=== PATIENT | female | born 1945 | race Caucasian/White ===

== ENCOUNTER → 2018-05-12 | Outpatient (CLI) | payer MEDICARE, BC ==
--- NOTE | 2018-05-12 10:18 | Diagnostic Imaging Report ---
TECHNIQUE: Magnetic resonance imaging of the left foot was performed WITHOUT injected contrast. HISTORY: nondisplaced fracture. COMPARISON: None available. DISCUSSION: Stress/insufficiency fracture of the third metatarsal base. 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 Hallux valgus with soft tissue bunion and first MTP degenerative arthrosis. Soft tissue swelling and edema of the foot. IMPRESSION: Stress/insufficiency fracture of the third metatarsal base. Signed by: Dr. Jorge Oh M.D. on 05/12/2018 10:14 AM
== END ==
LOC: MRI 08:23
PROVIDERS: ATTEND Podiatrist Foot & Ankle Surgery
DX: S92.215A Nondisplaced fracture of cuboid bone of left foot, initial encounter for closed fracture (principal)

== ENCOUNTER → 2018-09-16 | Outpatient (CLI) | payer MEDICARE, BC ==
--- NOTE | 2018-09-17 09:37 | Diagnostic Imaging Report ---
CT scan of the LEFT Foot, WITHOUT contrast. TECHNIQUE: Standard departmental protocols were used. Sagittal and coronal reformatted images were obtained. PROTOCOL: Routine COMPLICATIONS: None RADIATION DOSE: Total DLP = 93/6 mGy*cm Dose modulation, iterative reconstruction, and/or weight based adjustment of the mA/kV was utilized to reduce the radiation dose to as low as reasonably achievable. HISTORY: History of left foot fracture. COMPARISON: MRI left foot 05/12/2018. FINDINGS: Bones: No evidence of displaced fracture. There are mild sclerotic changes of the third metatarsal base, better characterized on prior MRI as stress/insufficiency fracture. Joints: No dislocation. Scattered moderate degenerative changes in the interphalangeal joints and midfoot. There is hallux valgus with moderate first MTP degenerative changes. Soft tissues: There is diffuse subcutaneous edema within the foot. IMPRESSION: No evidence of acute, displaced fracture. There are mild sclerotic changes of the third metatarsal base, better characterized on prior MRI as stress/insufficiency fracture. Diffuse subcutaneous edema within the foot. Signed by: Dr. Sergey Carrington MD on 09/17/2018 9:34 AM
== END ==
LOC: CT 16:39
PROVIDERS: ATTEND Podiatrist Foot & Ankle Surgery
DX: M79.672 Pain in left foot (principal); M79.671 Pain in right foot

== ENCOUNTER → 2019-06-19 | Day surgery (SDC) | payer MEDICARE, BC ==
[2019-06-12 15:51] LABS: BASOPHILS # (AUTO) 0.1 (0.0-0.1); BASOPHILS % 1.5 % (0.0-1.0); EOSINOPHILS # (AUTO) 0.3 (0.0-0.4); EOSINOPHILS % 4.2 % (0.0-6.0); HEMATOCRIT 40.5 % (34.2-44.1); HEMOGLOBIN 12.9 g/dL (12.0-16.0); LYMPHOCYTES # (AUTO) 2.5 (1.0-3.2); LYMPHOCYTES % 36.7 % (18.0-39.1); MEAN CORPUSCULAR HEMOGLOBIN 30.3 pg (28-32); MEAN CORPUSCULAR HGB CONC 31.9 g/dL (31-35); MEAN CORPUSCULAR VOLUME 95.1 fL (81-99); MONOCYTES # (AUTO) 0.6 (0.2-0.8); MONOCYTES % 8.3 % (4.4-11.3); NEUTROPHILS # (AUTO) 3.3 (2.1-6.9); NEUTROPHILS % 49.2 % (38.7-80.0); PLATELET COUNT 307 x10e3/uL (140-360); RED BLOOD COUNT 4.26 x10e6/uL (3.6-5.1); RED CELL DISTRIBUTION WIDTH 12.8 % (11.7-14.4)
--- NOTE | 2019-06-12 15:57 | Diagnostic Imaging Report ---
Chest, PA and lateral. History: Preoperative evaluation for foot surgery. Comparison: None available. Discussion: The cardiomediastinal silhouette and pulmonary vasculature are within normal limits. The lungs are clear without evidence of consolidation or effusion. There are no acute osseous abnormalities. IMPRESSION: No radiographic evidence of acute cardiopulmonary abnormality. Signed by: Osmar Watt MD on 06/12/2019 3:54 PM
[~2019-06-19] MED LIST: ACETAMINOPHEN 1000 MG/100 ML 100 ML IV ONE; BACITRACIN 50,000 UNIT VIAL ONE; BUPIVACAINE HCL 0.5% INJ 30 ML VIAL INJ ONE; CEFAZOLIN SOD 1 GM/NS 50ML 50 ML IV ONE; DEXAMETHASONE SOD PHOS INJ 4 MG/ML VIAL ONE; EPHEDRINE SULFATE INJ 50 MG/ML VIAL ONE; FENTANYL CITRATE/PF 100MCG/2 ML INJ ONE; GABAPENTIN100 MG PO; HYDROCODONE/APAP 5MG-325MG TAB ONE; LIDOCAINE HCL 2% LOCAL INJ 5 ML SDV VIAL INJ ONE; NAPROXEN250 MG PO; ONDANSETRON HCL INJ 2MG/ML 2ML 2 MG/ML VIAL ONE; PROPOFOL IV EMULSION 10 MG/ML 20 ML VIAL ONE; SEVOFLURANE INHAL SOLN 250 ML PEN BTL ONE
[2019-06-19 08:15] VITALS: BP 115/67
--- NOTE | 2019-06-19 14:06 | Operative Report ---
DATE OF PROCEDURE: 06/19/2019 SURGEON: Kimberly Dior DPM Dictating an operative report for Dr. Ortega. PREOPERATIVE DIAGNOSES: 1. Left 2nd metatarsal fracture. 2. Left 3rd metatarsal fracture. POSTOPERATIVE DIAGNOSES: 1. Left 2nd metatarsal fracture. 2. Left 3rd metatarsal fracture. PLANNED PROCEDURE: 1. Left 2nd metatarsal open reduction and internal fixation. 2. Left 3rd metatarsal open reduction and internal fixation. SURGEON: Funmilayo Ortega DPM ([place]). SHEET ROCK TAPER: Kimberly Dior DPM. ANESTHESIA: General with a postoperative block consisting of 20 mL of 0.5% Marcaine plain. HEMOSTASIS: Pneumatic thigh tourniquet set at 350 mmHg for a total time of approximately 40 minutes. MATERIALS: To Synthes four hole plate, eight 2.4 mm screws measuring, five measuring 12 mm and three measuring 14 mm, 3-0 Vicryl, 4-0 Prolene. ESTIMATED BLOOD LOSS: Less than 10 mL. PATHOLOGY: None. PROCEDURE NOTE: The patient was seen in the preoperative waiting room. The correct procedure and site were identified. The patient was brought to the operating room and placed on the operating table in the supine position. General anesthesia was initiated. At this time, a well-padded pneumatic tourniquet was placed about the patient's left thigh. The left foot, ankle, leg was then scrubbed, prepped, and draped in the usual aseptic manner. The left leg was exsanguinated with an Esmarch bandage and a pneumatic thigh tourniquet was inflated to 350 mmHg for a total time of approximately 40 minutes. Attention was directed to the dorsal aspect of the patient's left foot, where a large linear incision was made approximately 6 cm in length in the interspace of the 2nd and 3rd metatarsals. Incision was carefully dissected through the interspace to allow for good visualization of the extensor digitorum longus and brevis tendons. The tendons were retracted medially and laterally to allow for good visualization of the 2nd metatarsal. Utilizing a #15 blade, the periosteal incision was made directly over the 2nd metatarsal to allow for good visualization of the fracture site as well as the bony callus. It was noted to be in good alignment. Utilizing a rasp and bur, the bony callus was removed and the metatarsal fragment was aligned. Next, utilizing techniques of AO fixation, one 4-0 plate and four 2.0 mm screws were placed, three of them are 12 mm, one was 14 mm. Fixation site was stable and was confirmed via intraoperative fluoroscopy. Next, to the same incision, the tendons were again retracted medially and laterally to allow for good visualization of the 3rd metatarsal, where another periosteal incision was made directly over the bone fragment. There was noted to be more hematoma formation on the larger bony callus on the 3rd metatarsal and this was debrided utilizing a rasp and a rotary bur. Next, per manufacture protocol, one four hole plate with four 2.0 screws were placed, two 14 mm and two 12 mm. Fixation site was stable and confirmed via intraoperative fluoroscopy. The wound was then copiously irrigated with sterile saline. Capsule and deep tissue were reapproximated with 3-0 Vicryl, subcutaneous tissue with 3-0 Vicryl, and the skin was closed using a running interlocking stitch with 4-0 Prolene. Incision site was then dressed with Adaptic, 4x4s, Kerlix, Webril, posterior splint, 4-inch Norman wrap and 6-inch Norman wrap. The patient tolerated the procedure and anesthesia well. The patient was transferred to the postop recovery room with vital signs stable and vascular status intact. The patient was monitored there for a short period of time before being sent home with the following written and oral instructions: 1. Keep the dressing clean, dry, and intact. 2. The patient is to remain nonweightbearing in a posterior splint to avoid any ambulation until being seen in the office. 3. The patient was given the office number and instructed to contact us if any problems arise. ROSAURA Wong/MODL /[id number]
--- OUTSIDE RECORDS SUMMARY | 2019-06-26 11:39 | XMS REPORT ---
Author Author [facility] Address Unknown Phone Unavailable Care Team Providers Care Choker Setter Name Role Phone Jose Daniel CASTANON Unavailable Unavailable Fiorella JOHNS Unavailable Unavailable Problems This patient has no known problems. Allergies, Adverse Reactions, Alerts This patient has no known allergies or adverse reactions. Medications This patient has no known medications. Results Test Description Test Time Test Comments Text Results Atomic Results Result Comments CHEST 2 VIEWS 2019-06-12 15:53:00 [place] [address] Patient Name: ARUN LEZAMA MR #: [id number] : 1945 Age/Sex: 73/F Req #: [id number] Adm Physician: Ordered by: Jose Daniel CASTANON DPM Report #: [id number] Location: OR Room/Bed: Procedure: [id number] DX/CHEST 2 VIEWS Exam Date: Exam Time: REPORT STATUS: Signed Chest, PA and lateral. History: Preoperative evaluation for foot surgery. Comparison: None available. Discussion: The cardiomediastinal silhouette and pulmonary vasculature are within normal limits. The lungs are clear without evidence of consolidation or effusion. There are no acute osseous abnormalities. IMPRESSION: No radiographic evidence of acute cardiopulmonary abnormality. Signed by: Osmar Wu MD on 06/12/2019 3:54 PM Dictated By: OSMAR WU MD 53 Transcribed By: NUHA on 06/12/191553 COPY TO: Jose Daniel CASTANON DPM CT FOOT LEFT WO 2018-09-17 09:21:00 [place] [address] Patient Name: ARUN LEZAMA MR #: [id number] : 1945 Age/Sex: 73/F Req #: [id number] Adm Physician: Ordered by: JULIANN JOHNS DPM Report #: [id number] Location: CT Room/Bed: Procedure: [id number] CT/CT FOOT LEFT WO Exam Date: 09/16/18 Exam Time: 1740 REPORT STATUS: Signed CT scan of the LEFT Foot, WITHOUT contrast. TECHNIQUE: Standard departmental protocols were used. Sagittal and coronal reformatted images were obtained. PROTOCOL: Routine COMPLICATIONS: None RADIATION DOSE: Total DLP=93/6 mGy*cm Dose modulation, iterative reconstruction, and/or weight based adjustment of the mA/kV was utilized to reduce the radiation dose to as low as reasonably achievable. HISTORY: History of left foot fracture. COMPARISON: MRI left foot 05/12/2018. FINDINGS: Bones: No evidence of displaced fracture. There are mild sclerotic changes of the third metatarsal base, better characterized on prior MRI as stress/insufficiency fracture. Joints: No dislocation. Scattered moderate degenerative changes in the interphalangeal joints and midfoot. There is hallux valgus with moderate first MTP degenerative changes. Soft tissues: There is diffuse subcutaneous edema within the foot. IMPRESSION: No evidence of acute, displaced fracture. There are mild sclerotic changes of the third metatarsal base, better characterized on prior MRI as stress/insufficiency fracture. Diffuse subcutaneous edema within the foot. Signed by: Dr. Jami Khanna MD on 09/17/2018 9:34 AM Dictated By: JAMI KHANNA MD 3 Transcribed By: NUHA on 09/17/18933 COPY TO: JULIANN JOHNS M MRI FOOT LEFT WO 2018-05-12 10:02:00 [place] [address] Patient Name: ARUN LEZAMA MR #: [id number] : 1945 Age/Sex: 72/F Req #: [id number] Adm Physician: Ordered by: Jose Daniel CASTANON DPM Report #: [id number] Location: MRI Room/Bed: Procedure: [id number] MRI/MRI FOOT LEFT WO Exam Date: Exam Time: REPORT STATUS: Signed TECHNIQUE: Magnetic resonance imaging of the left foot was performed WITHOUT injected contrast. HISTORY: nondisplaced fracture. COMPARISON: None available. DISCUSSION: Stress/insufficiency fracture of the third metatarsal base. 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 Hallux valgus with soft tissue bunion and first MTP degenerative arthrosis. Soft tissue swelling and edema of the foot. IMPRESSION: Stress/insufficiency fracture of the third metatarsal base. Signed by: Dr. Scott Martinez M.D. on 05/12/2018 10:14 AM Dictated By: SCOTT MARTINEZ MD 1014 Transcribed By: NUHA on 05/12/18 1014 COPY TO: Jose Daniel CASTANON DPM
== END | disposition home or self-care (01) ==
LOC: OR 05:00
PROVIDERS: ATTEND Podiatrist Foot & Ankle Surgery
DX: S92.322A Displaced fracture of second metatarsal bone, left foot, initial encounter for closed fracture (principal); S92.332A Displaced fracture of third metatarsal bone, left foot, initial encounter for closed fracture; F41.9 Anxiety disorder, unspecified; X58.XXXA Exposure to other specified factors, initial encounter; Z01.810 Encounter for preprocedural cardiovascular examination; Z01.812 Encounter for preprocedural laboratory examination; Z01.818 Encounter for other preprocedural examination; Z96.642 Presence of left artificial hip joint
CPT/HCPCS: 28485 ×2; 36415; 71046; 85025; 93005; C1713 ×4; J0131; J0690; J3010; J1100; J2001; J2405

== ENCOUNTER 2025-02-21 10:29 | Emergency (ER) | payer MEDICARE, BC ==
[~2025-02-21] VITALS: Ht 165.1 cm; Wt 77.1 kg
[~2025-02-21 10:29] MED LIST changes: -ACETAMINOPHEN 1000 MG/100 ML 100 ML IV ONE; -BACITRACIN 50,000 UNIT VIAL ONE; -BUPIVACAINE HCL 0.5% INJ 30 ML VIAL INJ ONE; -CEFAZOLIN SOD 1 GM/NS 50ML 50 ML IV ONE; -DEXAMETHASONE SOD PHOS INJ 4 MG/ML VIAL ONE; -EPHEDRINE SULFATE INJ 50 MG/ML VIAL ONE; -FENTANYL CITRATE/PF 100MCG/2 ML INJ ONE; -HYDROCODONE/APAP 5MG-325MG TAB ONE; -LIDOCAINE HCL 2% LOCAL INJ 5 ML SDV VIAL INJ ONE; -ONDANSETRON HCL INJ 2MG/ML 2ML 2 MG/ML VIAL ONE; -PROPOFOL IV EMULSION 10 MG/ML 20 ML VIAL ONE; -SEVOFLURANE INHAL SOLN 250 ML PEN BTL ONE
[2025-02-21] MEDS: TRAMADOL HCL 50 MG TAB PO ONE (11:56)
[2025-02-21] MEDS ORDERED: BACLOFEN10 MG PO (13:30)
[2025-02-21 13:38] VITALS: PULSE 68; RESP 16; TEMP 98.1; O2SAT 96
== END 2025-02-21 13:38 | disposition home or self-care (01) ==
LOC: FSED 10:42
DX: M25.561 Pain in right knee (principal); S86.811A Strain of other muscle(s) and tendon(s) at lower leg level, right leg, initial encounter; Z96.642 Presence of left artificial hip joint
CPT/HCPCS: 93971; 99284